=== PATIENT | female | born 1985 | race Caucasian/White ===

== ENCOUNTER 2018-07-03 10:28 | Inpatient (IN) | payer OTHER ==
[2018-07-03 12:43] VITALS: BMI 21.9
--- NOTE | 2018-07-03 18:04 | HP ---
Admission [facility] Chief Complaint: cocaine rehabilitation Allergies/Adverse Reactions: Allergies Allergy/AdvReac Type Severity Reaction Status Date / Time No Known Allergies Allergy Verified 07/03/18 13:39 History of Present Illness: 32 yo female with hx of cocaine dependence is here seeking rehabilitation, hx of uses since 28 yo, last uses four days ago with an average use of $20 per day. Denies any legal troubles at this time. Last rehab two years ago at [facility]. PMHX: anxiety and schizophrenia . Denies suicidal / homicidal ideation. Denies hx of seizures or blackouts. Exam Limitations: No Limitations - Ebola screening Have you traveled outside of the country in the last 21 days: No Have you had contact with anyone from an Ebola affected area: No Have you been sick,other than usual withdrawal symptoms: No Do you have a fever: No - Review of Systems Constitutional: No Symptoms Reported EENT: reports: No Symptoms Reported Respiratory: reports: No Symptoms reported Cardiac: reports: No Symptoms Reported GI: reports: No Symptoms Reported : reports: No Symptoms Reported Musculoskeletal: reports: No Symptoms Reported Integumentary: reports: No Symptoms Reported Neuro: reports: No Symptoms reported Endocrine: reports: No Symptoms Reported Hematology: reports: No Symptoms Reported Psychiatric: reports: Orientated x3, Anxious Other Systems: Reviewed and Negative Patient History - Patient Medical History Hx Anemia: No Hx Asthma: No Hx Chronic Obstructive Pulmonary Disease (COPD): No Hx Cancer: No Hx Cardiac Disorders: No Hx Congestive Heart Failure: No Hx Hypertension: No Hx Hypercholesterolemia: No Hx Pacemaker: No HX Cerebrovascular Accident: No Hx Seizures: No Hx Dementia: No Hx Diabetes: No Hx Gastrointestinal Disorders: No Hx Liver Disease: No Hx Genitourinary Disorders: No Hx Sexually Transmitted Disorders: No Hx Renal Disease (ESRD): No Hx Thyroid Disease: No Hx Human Immunodeficiency Virus (HIV): No Hx Hepatitis C: No Hx Depression: No Hx Suicide Attempt: No Hx Bipolar Disorder: No Hx Schizophrenia: Yes - Patient Surgical History Past Surgical History: No - PPD History Previous Implant?: No Documented Results: Negative w/o proof PPD to be Administered?: Yes - Reproductive History Patient is a Female of Child Bearing Age (11 -55 yrs old): Yes Last Menstrual Period: 06/29/18 Patient : No - Smoking Cessation Smoking history: Former smoker Have you smoked in the past 12 months: No Aproximately how many cigarettes per day: 0 If you are a former smoker, when did you quit?: 09/10/15 Hx Chewing Tobacco Use: No Initiated information on smoking cessation: No - Substance & Tx. History Hx Alcohol Use: No Hx Substance Use: Yes Substance Use Type: Cocaine Hx Substance Use Treatment: Yes ([facility] two years ago ) - Substances Abused Cocaine Route: Inhalation Frequency: 3-6 times per week Amount used: $20 Age of first use: 28 Date of Last Use: 06/30/18 Family Disease History - Family Disease History Family Disease History: Other: Father (NEVER MEET) Admission Physical Exam [facility] - Vital Signs Vital Signs: Vital Signs - 24 hr 07/03/18 12:35 Temperature 98.8 F Pulse Rate 74 Respiratory 18 Rate Blood Pressure 112/65 - Physical General Appearance: Yes: Appropriately Dressed, Thin, Anxious HEENTM: Yes: EOMI, Hearing grossly Normal, Normal ENT Inspection, Normocephalic , Normal Voice, NATALIA, Pharynx Normal, Tm's normal Respiratory: Yes: Within Normal Limits Neck: Yes: Within Normal Limits Breast: Yes: Breast Exam Deferred Cardiology: Yes: Regular Rhythm, Regular Rate Abdominal: Yes: Normal Bowel Sounds, Non Tender, Flat, Soft Genitourinary: Yes: Within Normal Limits Back: Yes: Normal Inspection Musculoskeletal: Yes: full range of Motion, Gait Steady, Pelvis Stable Extremities: Yes: Normal Capillary Refill, Normal Inspection, Normal Range of Motion, Non-Tender Neurological: Yes: bilingual trainer II-XII NML intact, Fully Oriented, Alert, Motor Strength 5/5, Normal Mood/Affect, Normal Response Integumentary: Yes: Normal Color, Dry, Warm Lymphatic: Yes: Within Normal Limits - Diagnostic (1) Psychiatric disorder Current Visit: Yes Status: Suspected (2) Cocaine dependence, uncomplicated Current Visit: Yes Status: Chronic [facility] Breath Alcohol Content Breath Alcohol Content: 0 Urine Pregancy Test - Result Urine Test Results: Negative- NO Line Present Urine Drug Screen - Results Drug Screen Negative: No Urine Drug Screen Results: VILMA-Cocaine, BZO-Benzodiazepines Inpatient Rehab Admission - Initial Determination Are CD services needed?: Yes Free of communicable disease: Yes Not in need of hospitalization: Yes - Rehab Admission Criteria Previous failed treatment: Yes Poor recovery environment: Yes Comorbidities: Yes Lacks judgement: Yes Patient is meeting Inpatient Rehab admission criteria:: Yes
[2018-07-03] MEDS ORDERED: LOPERAMIDE HCL 2 MG CAPSULE PO PRN (18:07)
[2018-07-03] MEDS ORDERED: IBUPROFEN 400 MG TABLET (FP) PO PRN (18:07)
[2018-07-03] MEDS ORDERED: hydrOXYzine PAMOATE 50 MG CAPSULE (FP) PO PRN (18:07)
[2018-07-03] MEDS ORDERED: MAG HYDROX/AL HYDROX/SIMETH 30 ML UNIT-DOSE CUP PO PRN (18:07)
[2018-07-03] MEDS ORDERED: P-EPHED 60MG/TRIPROLIDI 2.5MG TABLET PO PRN (18:07)
[2018-07-03] MEDS ORDERED: guaiFENesin/D-METHORPHAN HB 10 ML UNIT-DOSE CUPS PO PRN (18:07)
[2018-07-03] MEDS ORDERED: MENTHOL/PHENOL 1 EACH UD MM PRN (18:07)
[2018-07-03] MEDS ORDERED: MAGNESIUM HYDROX 2400MG/30ML ORAL SUSPENSION 30 ML CUP PO PRN (18:07)
[2018-07-03] MEDS ORDERED: MAGNESIUM CITRATE 300 ML BOTTLE PO PRN (18:07)
[2018-07-03] MEDS ORDERED: ACETAMINOPHEN 325 MG TABLET (FP) PO PRN (18:07)
[2018-07-03] MEDS: THIAMINE HCL 100 MG TABLET (FP) PO SCH (21:35)
[2018-07-03] MEDS ORDERED: MELATONIN 5 MG TABLETS PO PRN (22:00)
[2018-07-04] MEDS: PRENATAL VITAMINS W/ FOLIC ACID TABLET (FP) PO SCH (09:48)
[2018-07-04 10:20] LABS: HEMATOCRIT 36.5 % (32.4-45.2); MCH 31.8 pg (25.7-33.7); MCHC 32.9 g/dl (32.0-36.0); MEAN CELL VOLUME 96.8 fl (80-96); MEAN PLT VOLUME 10.2 fl (7.5-11.1); PLATELET COUNT 209 K/MM3 (134-434); RBC 3.77 M/mm3 (3.60-5.2); RDW 14.1 % (11.6-15.6); WHITE BLOOD COUNT 5.8 K/mm3 (4.0-10.0)
[2018-07-04 10:32] LABS: CHLORIDE 108 mmol/L (98-107); POTASSIUM 3.8 mmol/L (3.5-5.1); SODIUM 141 mmol/L (136-145)
[2018-07-04 11:02] LABS: ALBUMIN 2.4 g/dl (3.4-5.0); ALK PHOS 62 U/L (45-117); ANION GAP 12 MMOL/L (8-16); BILIRUBIN,TOTAL 0.4 mg/dL (0.2-1); BLOOD UREA NITROGEN 13 mg/dL (7-18); CALCIUM 8.3 mg/dL (8.5-10.1); CO2 21 mmol/L (21-32); CREATININE 0.8 mg/dL (0.55-1.3); GLUCOSE,RANDOM 112 mg/dL (74-106); SGOT/AST 8 U/L (15-37); SGPT/ALT 13 U/L (13-61); TOT PROT 6.2 g/dl (6.4-8.2)
--- NOTE | 2018-07-04 11:10 | PN ---
[facility] Progress Note Note: received nurse called that the patient needs ppd
--- NOTE | 2018-07-04 16:46 | EKG ---
Test Reason : Blood Pressure : / mmHG Vent. Rate : 073 BPM Atrial Rate : 073 BPM P-R Int : 086 ms QRS Dur : 098 ms QT Int : 424 ms P-R-T Axes : -17 077 048 degrees QTc Int : 467 ms SINUS RHYTHM WITH SINUS ARRHYTHMIA WITH SHORT SC OTHERWISE NORMAL ECG WHEN COMPARED WITH ECG OF 06-JUL-2016 09:13, INCOMPLETE RIGHT BUNDLE BRANCH BLOCK IS NO LONGER PRESENT Confirmed by Michi Salazar ([id number]) on 07/04/2018 4:45:21 PM Referred By: Confirmed By:Michi Salazar
[2018-07-04] MEDS: THIAMINE HCL 100 MG TABLET (FP) PO SCH (21:43)
--- NOTE | 2018-07-05 08:32 | HP ---
Psychiatrist Admission - Data Date of interview: 07/05/18 Admission source: [facility] Identifying data: This is the second admission to [address] [place] [address] for this 32 years old H single female mother of 3 yo son, resides with mother ,supported by [facility]. Medical History: UTI Psychiatric History: Patient reports first psychotic episode(auditory hallucinations,paranoid behavior) at 24 years old.She was admitted to [facility] ,dx with Schizophrenia.Patient was placed on Haldol with good response.Reports 5 more psychiatric hospitalizations.Currently sees psychiatrist at [facility].Medications:Haldol Decanoate 100 mg IM, was planted 2 weeks ago.Cogentin 1 mg po hs will continue. Physical/Sexual Abuse/Trauma History: Patient denies Vital Signs: Vital Signs - 24 hr 07/05/18 07/05/18 07/05/18 00:30 03:30 07:24 Temperature 97.9 F Pulse Rate 58 L Respiratory 16 16 18 Rate Blood Pressure 96/60 Allergies/Adverse Reactions: Allergies Allergy/AdvReac Type Severity Reaction Status Date / Time No Known Allergies Allergy Verified 07/03/18 13:39 Date of last physical exam: 07/03/18 Concur with the findings of this exam: Yes - Substance Abuse/Tx History Hx Alcohol Use: No Hx Substance Use: Yes (cocaine since 28 yo,spending $20 daily) Substance Use Type: Cocaine Hx Substance Use Treatment: Yes (left AMA this program in 2015) Mental Status Exam - Mental Status Exam Alert and Oriented to: Time, Place, Person Cognitive Function: Grossly Intact Patient Appearance: Well Groomed Mood: Anxious Affect: Constricted Patient Behavior: Guarded, Cooperative Speech Pattern: Clear Voice Loudness: Normal Thought Process: Goal Oriented Thought Disorder: Being Controlled Hallucinations: Denies Suicidal Ideation: Denies Homicidal Ideation: Denies Insight/Judgement: Fair Sleep: Fair Appetite: Good Muscle strength/Tone: Normal Gait/Station: Normal Psychiatric Findings - Problem List ([place] 1, 2,3) (1) UTI (urinary tract infection) Current Visit: Yes Status: Resolved Qualifiers: Urinary tract infection type: acute cystitis Hematuria presence: without hematuria Qualified Code(s): N30.00 - Acute cystitis without hematuria (2) Nicotine dependence Current Visit: Yes Status: Chronic Qualifiers: Nicotine product type: cigarettes Substance use status: uncomplicated Qualified Code(s): F17.210 - Nicotine dependence, cigarettes, uncomplicated Comment: NICOTINE REPLACEMENT THERAPY (3) Cocaine dependence, uncomplicated Current Visit: Yes Status: Chronic - Initial Treatment Plan Initial Treatment Plan: Cogentin 1 mg po hs,add Elavil 25 mg po tid.Next injection of Haldol in 2 weeks from now. Will monitor progress.
[2018-07-05] MEDS: PRENATAL VITAMINS W/ FOLIC ACID TABLET (FP) PO SCH (09:59)
[2018-07-05] MEDS ORDERED: AMITRIPTYLINE HCL 25 MG TABLET (FP) PO ONE (11:00)
[2018-07-05] MEDS ORDERED: hydrOXYzine PAMOATE 25 MG CAPSULE (FP) PO PRN (11:04)
[2018-07-05] MEDS: AMITRIPTYLINE HCL 25 MG TABLET (FP) PO SCH ×2 (14:56→21:15)
[2018-07-05 16:11] LABS: URINE APPEARANCE CLOUDY; URINE BILIRUBIN NEGATIVE (<2.0 mg/dL); URINE COLOR YELLOW; URINE GLUCOSE (UA) NEGATIVE (NEGATIVE); URINE KETONE NEGATIVE (NEGATIVE); URINE NITRITE NEGATIVE (NEGATIVE); URINE PROTEIN NEGATIVE (NEGATIVE); URINE UROBILINOGEN NEGATIVE mg/dL (0.2-1.0)
[2018-07-05 16:24] LABS: URINE LEUK ESTERASE 2+ (NEGATIVE)
[2018-07-05 16:29] LABS: EPI CELLS MODERATE /HPF (FEW); URINE BACTERIA RARE /hpf (NONE SEEN); URINE MUCUS RARE
[2018-07-05] MEDS: THIAMINE HCL 100 MG TABLET (FP) PO SCH (21:15)
[2018-07-06] MEDS: AMITRIPTYLINE HCL 25 MG TABLET (FP) PO SCH (06:47)
[2018-07-06 07:20] VITALS: BP 98/62; PULSE 54; TEMP 98.2
[2018-07-06] MEDS: PRENATAL VITAMINS W/ FOLIC ACID TABLET (FP) PO SCH (09:20)
--- NOTE | 2018-07-06 14:36 | PN ---
[facility] Progress Note Note: Vital Signs Temperature 98.2 F 07/06/18 07:19 Pulse Rate 54 L 07/06/18 07:19 Respiratory Rate 19 07/06/18 07:19 Blood Pressure 98/62 07/06/18 07:19 O2 Sat by Pulse Oximetry (%) Patient left AMA.
[2018-07-06] MEDS ORDERED: AMITRIPTYLINE HCL 25 MG TABLET (FP) PO SCH (22:00)
== END 2018-07-06 14:32 | disposition left against medical advice (07) | DRG 894 ==
LOC: YASAS 10:28 → Y3E 18:59
PROVIDERS: ADMIT Psychiatry & Neurology Psychiatry; ATTEND Psychiatry & Neurology Psychiatry
PROC: HZ42ZZZ Group Counseling for Substance Abuse Treatment, Cognitive-Behavioral (ICD-10-PCS; principal; 2018-07-03)
DX: F14.20 Cocaine dependence, uncomplicated (principal); N30.00 Acute cystitis without hematuria; F17.210 Nicotine dependence, cigarettes, uncomplicated; F20.9 Schizophrenia, unspecified; F41.9 Anxiety disorder, unspecified
CPT/HCPCS: 36415; 80053; 81003; 81015; 85027; 86593; 93005; 93010

== ENCOUNTER 2019-11-08 22:52 | Emergency (ER) | payer OTHER ==
[2019-11-08 22:59] VITALS: BP 105/64; PULSE 76; TEMP 97.7; BMI 23.0
[2019-11-08] MEDS ORDERED: diphenhydrAMINE HCL 25 MG CAPSULE (FP) PO ONE ×2 (23:48→23:59)
[2019-11-09] MEDS ORDERED: ACETAMINOPHEN 325 MG TABLET (FP) PO ONE (00:40)
[2019-11-09] MEDS ORDERED: ACETAMINOPHEN 325 MG TABLET (FP) ONE (00:42)
--- NOTE | 2019-11-09 00:56 | PDOC ---
History of Present Illness - General Chief Complaint: Cold Symptoms Stated Complaint: VOMITING & CHEST PAIN Time Seen by Provider: 11/08/19 23:04 History Source: Patient Exam Limitations: No Limitations Past History - Past Medical History Allergies/Adverse Reactions: Allergies Allergy/AdvReac Type Severity Reaction Status Date / Time No Known Allergies Allergy Verified 11/08/19 22:59 Home Medications: Ambulatory Orders LORazepam [Lorazepam] 2 mg PO BID PRN 07/03/18 Diphenhydramine HCl [Benadryl -] 25 mg PO Q6H #20 capsule 11/09/19 Ibuprofen [Motrin -] 600 mg PO QID PRN #20 tablet 11/09/19 Anemia: No Asthma: No Cancer: No Cardiac Disorders: No CVA: No COPD: No CHF: No Dementia: No Diabetes: No GI Disorders: No Disorders: No HTN: No Hypercholesterolemia: No Kidney Stones: No Liver Disease: No Seizures: No Thyroid Disease: No - Reproductive History PID: No - Immunization History Immunization Up to Date: Yes - Psycho Social/Smoking Cessation Hx Smoking History: Never smoked Have you smoked in the past 12 months: No Number of Cigarettes Smoked Daily: 0 If you are a former smoker, when did you quit?: 09/10/15 Information on smoking cessation initiated: No 'Breaking Loose' booklet given: 10/05/16 Hx Alcohol Use: No Drug/Substance Use Hx: No Substance Use Type: Cocaine Hx Substance Use Treatment: Yes (left AMA this program in 2015) *Physical Exam - Vital Signs Last Vital Signs Temp Pulse Resp BP Pulse Ox 97.7 F 76 17 105/64 97 11/08/19 22:56 11/08/19 22:56 11/08/19 22:56 11/08/19 22:56 11/08/19 22:56 - Physical Exam General Appearance: No: Apparent Distress Respiratory/Chest: positive: Lungs Clear, Normal Breath Sounds. negative: Respiratory Distress Cardiovascular: positive: Regular Rhythm, Regular Rate, S1, S2. negative: Murmur Gastrointestinal/Abdominal: positive: Soft. negative: Tender Integumentary: positive: Normal Color Neurologic: positive: Alert ED Treatment Course - RADIOLOGY Radiology Studies Ordered: Category Date Time Status CHEST PA & LAT [RAD] Stat Radiology 11/08/19 23:25 Taken - Medications Given in the ED: ED Medications Discontinued Medications Generic Name Dose Route Start Last Admin Trade Name Freq PRN Reason Stop Dose Admin Diphenhydramine HCl 25 mg 11/08/19 23:48 11/09/19 00:00 Benadryl - PO 11/08/19 23:49 25 mg ONCE ONE Administration Medical Decision Making - Medical Decision Making 34 y/o F with hx of schizphrenia, anxiety, ?cocaine dependence presents with chest tightness and sob from yesterday along with generalized, tension like PARKER and jaw tightness. Mentions gets monthly IM haldol injections and last received the shot 2 days ago. States she has never had any adverse reaction from Haldol. Also states sxs do not feel like anxiety and is not currently stressed out about anything. Though chart review mentions patient was in detox for cocaine dependence, patient denies ever using drugs and states she has never been in detox or rehab. Mentioned tried smoking briefly around 10 years ago, but it was very light (maybe around 1 cig/day). Denies fever, URI sxs, abd pain, n/v/d, numbness/tingling, visual/gait changes. EKG: NSR at 72 bpm, no ST-T changes CXR wet read negative Patient with no significant risk factors for ACS Patient was given Benadryl in case this was a reaction to Haldol On reassessment, patient states she was feeling better and no longer had the chest pain stable for dc 11/09/19 00:51 Discharge - Discharge Information Problems reviewed: Yes Clinical Impression/Diagnosis: Medication reaction Qualifiers: Encounter type: initial encounter Qualified Code(s): T50.905A - Adverse effect of unspecified drugs, medicaments and biological substances, initial encounter Condition: Stable Disposition: HOME - Admission No - Additional Discharge Information Prescriptions: Diphenhydramine HCl [Benadryl -] 25 mg PO Q6H #20 capsule Ibuprofen [Motrin -] 600 mg PO QID PRN #20 tablet PRN Reason: Pain Prescription Drug Monitoring Program (I-STOP) results: I-STOP not reviewed - Follow up/Referral Referrals: Ronnie Clark MD [Primary Care Provider] - 2 Days - Patient Discharge Instructions Additional Instructions: Thank you for choosing [facility]. It was a pleasure taking care of you. Likely your symptoms are side effect from the Haldol For this reason, you were given Benadryl Follow-up with your psychiatrist Return to the Emergency Department if your symptoms worsen or persist or have other concerning symptoms. - Post Discharge Activity
--- NOTE | 2019-11-09 01:09 | PDOC ---
*Physical Exam - Vital Signs Last Vital Signs Temp Pulse Resp BP Pulse Ox 97.7 F 76 17 105/64 97 11/08/19 22:56 11/08/19 22:56 11/08/19 22:56 11/08/19 22:56 11/08/19 22:56 ED Treatment Course - Medications Given in the ED: ED Medications Discontinued Medications Generic Name Dose Route Start Last Admin Trade Name Freq PRN Reason Stop Dose Admin Acetaminophen 975 mg 11/09/19 00:40 11/09/19 01:06 Tylenol - PO 11/09/19 00:41 975 mg ONCE ONE Administration Diphenhydramine HCl 25 mg 11/08/19 23:48 11/09/19 00:00 Benadryl - PO 11/08/19 23:49 25 mg ONCE ONE Administration Medical Decision Making - Medical Decision Making 11/09/19 01:08 Case reviewed, agree with assessment and plan Discharge - Discharge Information Problems reviewed: Yes Clinical Impression/Diagnosis: Medication reaction Qualifiers: Encounter type: initial encounter Qualified Code(s): T50.905A - Adverse effect of unspecified drugs, medicaments and biological substances, initial encounter Condition: Stable Disposition: HOME - Additional Discharge Information Prescriptions: Diphenhydramine HCl [Benadryl -] 25 mg PO Q6H #20 capsule Ibuprofen [Motrin -] 600 mg PO QID PRN #20 tablet PRN Reason: Pain - Follow up/Referral Referrals: Ronnie Clark MD [Primary Care Provider] - 2 Days - Patient Discharge Instructions Additional Instructions: Thank you for choosing [facility]. It was a pleasure taking care of you. Likely your symptoms are side effect from the Haldol For this reason, you were given Benadryl Follow-up with your psychiatrist Return to the Emergency Department if your symptoms worsen or persist or have other concerning symptoms. - Post Discharge Activity
--- NOTE | 2019-11-09 13:55 | EKG ---
Test Reason : Blood Pressure : / mmHG Vent. Rate : 072 BPM Atrial Rate : 072 BPM P-R Int : 124 ms QRS Dur : 098 ms QT Int : 408 ms P-R-T Axes : 061 078 047 degrees QTc Int : 446 ms NORMAL SINUS RHYTHM INCOMPLETE RIGHT BUNDLE BRANCH BLOCK WHEN COMPARED WITH ECG OF 03-JUL-2018 19:14, NO SIGNIFICANT CHANGE WAS FOUND Confirmed by EMMA PORRAS MD ([id number]) on 11/09/2019 1:55:41 PM Referred By: Confirmed By:EMMA PORRAS MD
== END 2019-11-09 01:21 | disposition home or self-care (01) ==
LOC: JER 22:52
DX: R06.02 Shortness of breath (principal); R07.9 Chest pain, unspecified; T50.905A Adverse effect of unspecified drugs, medicaments and biological substances, initial encounter; F20.9 Schizophrenia, unspecified; F41.9 Anxiety disorder, unspecified
CPT/HCPCS: 71046-TC-FY; 93005; 93010; 99282-25

== ENCOUNTER 2025-01-03 11:05 | Emergency (ER) | payer OTHER ==
[2025-01-03 11:20] VITALS: BP 115/93; PULSE 112; RESP 20; TEMP 99; BMI 27.4
[2025-01-03] MEDS ORDERED: IBUPROFEN 600 MG TABLET (FP) PO ONE (12:10)
[2025-01-03] MEDS: IBUPROFEN 600 MG TABLET (FP) PO ONE (12:11)
== END 2025-01-03 16:18 | disposition home or self-care (01) ==
LOC: JERFT 11:05
DX: S83.92XA Sprain of unspecified site of left knee, initial encounter (principal); Y04.8XXA Assault by other bodily force, initial encounter
CPT/HCPCS: 73562-TC-LT-FY; 99283-25